=== PATIENT | male | born 1980 | race Caucasian/White ===

== ENCOUNTER 2022-03-22 20:04 | Emergency (ER) | payer OTHER, SELFPAY ==
[2022-03-22 20:29] VITALS: BP 131/81; PULSE 99; RESP 18; TEMP 36.8; O2SAT 94; BMI 29.5
--- NOTE | 2022-03-22 20:37 | ED_ITS ---
HPI - Animal Bite General Chief Complaint: Animal Bite Stated Complaint: dog bite Time Seen by Provider: 03/22/22 20:36 Source: patient Mode of arrival: ambulatory Limitations: no limitations History of Present Illness HPI narrative: 41-year-old male presents to the ER for evaluation of a dog bite to his right forearm just prior to arrival. 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 He was in the backyard when 1 of the arnett retrievers jumped up and bit his right forearm. He states it was 1 bite to the forearm that the dog released. The customers report the dog's shots are all up-to-date. He has never had a tetanus shot per his report. He states there are some puncture wounds in abrasions to the right forearm. He denies any numbness, weakness, tingling. He has pain in the dorsal aspect of the forearm when he moves his wrist. MD complaint: animal bite Onset (ago): minute(s) Animal: dog Description of animal: household pet Mechanism: bite Location - Extremities: right: forearm Pain description: dull Severity scale (1-10): 4 Context: unprovoked Associated symptoms: none Treatments prior to arrival: wound dressing(s) and irrigation Related Data Patient tetanus UTD: No Previous Rx's Medication Instructions Recorded amoxicillin 875 mg-potassium 1 tab PO BID #14 tabs 03/22/22 clavulanate 125 mg tablet Allergies Allergy/AdvReac Type Severity Reaction Status Date / Time No Known Allergies Allergy Verified 03/22/22 20:28 Review of Systems Review of Systems: Constitutional: No Fever, No Chills ENT/Mouth: No sore throat, No Rhinorrhea, No Swallowing Difficulty Eyes: No Eye Pain, No Swelling, No Redness Cardiovascular: No Chest Pain, No SOB, No Edema Respiratory: No Cough, No Sputum Gastrointestinal: No Nausea, No Vomiting Musculoskeletal: No joint pain, + Myalgias Skin: + Skin Lesions, No rash Neuro: No Weakness, No Numbness Heme/Lymph: No Bruising, No Lymphadenopathy Physical Exam ED Vital Signs: Vital Signs - 24 hr 03/22/22 20:29 Temperature 98.2 F Pulse Rate 99 Respiratory Rate 18 Blood Pressure 131/81 Pulse Oximetry 94 Oxygen Delivery Method Room Air BMI result Body Mass Index 29.5 Appearance: Alert. Oriented X3. No acute distress. HEENT: normal inspection CVS: Normal heart rate and rhythm. Pulses normal. Respiratory: No respiratory distress. Skin: Skin warm and dry. Normal skin color. Normal skin turgor. No rashes. Extremities: Right dorsal forearm with single puncture wound in the middle of the forearm, 2 small abrasions distally. No drainage from the wounds, no surrounding erythema, no swelling. Normal range of motion of the wrist and elbow. Neurovascularly intact distally. Compartments are soft and compressible. [employer] strength bilaterally Neuro: Oriented X 3. No motor deficit. No sensory deficit. Course Course Course Narrative: 41-year-old male presents to the ER for evaluation of a dog bite on his right forearm. Dog is up-to-date on his shots. Exam is consistent with 1 puncture wound to the mid forearm and 2 small abrasions. He has full range of motion of the wrist and elbow. No drainage, erythema, swelling. Area was irrigated extensively with saline. Antibiotic ointment was applied along with a dry sterile dressing. He was given 1st dose of Augmentin here. He was given tetanus shot. Patient was counseled on signs and symptoms of infection. He will return if he develops any concerning signs or symptoms. He is stable for discharge home. Discharge Plan Discharge Clinical Impression: Dog bite Patient Disposition: Home, Self-Care Instructions: Animal Bite (ED) Additional Instructions: Take the prescribed antibiotic as directed, complete the entire course. Take the antibiotic starting 1st thing tomorrow morning. Your given the 1st dose today in the emergency department. Monitor for signs and symptoms of infection including redness, swelling, worsening pain. If you develop the symptoms while on antibiotics call your doctor or come back to the emergency department immediately for further evaluation. Prescriptions: New amoxicillin-pot clavulanate 875-125 mg tablet 1 tab PO BID Qty: 14 0RF
[2022-03-22] MEDS: Diphth,Pertus(ACell),Tet Adult 0.5 ML SYRINGE IM (20:59)
[2022-03-22] MEDS: Amoxicillin/Potassium Clav 875 MG TABLET PO (20:59)
[2022-03-22 21:30] VITALS: BP 129/84; PULSE 95; RESP 16; O2SAT 95
--- NOTE | 2022-03-22 21:33 | PC.NURSE ---
dogs are not the pt dogs, two dogs fighting while at a clients house. up to date on shots.
== END 2022-03-22 21:35 | disposition home or self-care (01) ==
LOC: HO.ED 21:23
PROVIDERS: Emergency Provider Emergency Medicine
DX: S51.851A Open bite of right forearm, initial encounter (principal); W54.0XXA Bitten by dog, initial encounter; Y93.89 Activity, other specified; Y92.019 Unspecified place in single-family (private) house as the place of occurrence of the external cause; Y99.0 Civilian activity done for income or pay
CPT/HCPCS: 90471; 90715; 99283; 99284